=== PATIENT | male | born 2000 ===

== ENCOUNTER 2018-01-22 10:48 | Emergency (ER) | payer OTHER ==
[2018-01-22 12:00] VITALS: BP 126/76
--- NOTE | 2018-01-22 12:37 | UC ---
Throat Pain/Nasal Magdaleno HPI - HPI Summary HPI Summary: 17 y/o male presents to the urgent care c/o sore throat, nasal congestion, sinus pain, LEOS, low grade fever, body aches, chills since 01/20/2018. Pt reports Tuesday he had chills. Today he developed 1 episode of watery diarrhea this morning. Pt has taking Excedrin PO and Tylenol PO to alleviate symptoms. Pain w/ swallowing is 2/10 associates w/ a sore neck. Pt is UTD w/ all vaccines for his age. - History of Current Complaint Chief Complaint: UCRespiratory Stated Complaint: SORE THROAT,CONGESTED Time Seen by Provider: 01/22/18 12:11 Hx Obtained From: Patient Onset/Duration: Gradual Onset, Lasting Days - 4 days, Still Present, Worse Since - yesterday Severity: Mild Pain Intensity: 2 Pain Scale Used: 0-10 Numeric Cough: None Associated Signs & Symptoms: Positive: Dysphagia, Sinus Discomfort, Nasal Discharge, Fever, Other - diarrhea 1 episode today. Negative: Rash Related History: Seasonal Allergies - Epiglottits Risk Factors Epiglottis Risk Factors: Negative - Allergies/Home Medications Allergies/Adverse Reactions: Allergies Allergy/AdvReac Type Severity Reaction Status Date / Time No Known Allergies Allergy Verified 01/22/18 12:00 Home Medications: Home Medications Aspirin/Acetaminophen/Caffeine [Excedrin Extra Strength Caplet] 1 each PO Q6HR 01/22/18 [History Confirmed 01/22/18] PMH/Surg Hx/FS Hx/Imm Hx Previously Healthy: Yes Respiratory History: Asthma Other Respiratory History: Seasonal allergies - Surgical History Surgical History: Yes Surgery Procedure, Year, and Place: thumb bone repair - Family History Known Family History: Positive: None - Pt denies FMHX - Social History Occupation: Student Lives: With Family Alcohol Use: Weekly Substance Use Type: Marijuana Substance Use Comment - Amount & Last Used: 2 times a week Smoking Status (MU): Never Smoked Tobacco - Immunization History Vaccination Up to Date: Yes Review of Systems Constitutional: Fever - low grade subjective fever at home, Chills, Fatigue, Other - body aches Skin: Negative Eyes: Negative ENT: Sore Throat, Nasal Discharge, Sinus Congestion Respiratory: Negative Cardiovascular: Negative Gastrointestinal: Negative Genitourinary: Negative Motor: Negative Neurovascular: Negative Musculoskeletal: Negative Neurological: Headache Psychological: Negative Is Patient Immunocompromised?: No All Other Systems Reviewed And Are Negative: Yes Physical Exam - Summary Physical Exam Summary: Vital Signs Reviewed: Yes General: well developed, well nourished male adolescent sitting in the examining table w/o any apparent distress Eyes: Positive: Conjunctiva Clear - PERRLA, EOMI, fundi grossly normal ENT: Positive: Normal ENT inspection, Hearing grossly normal, Pharynx mild erythema, no exudate, Nasal congestion - edematous and erythematous nasal mucosa , Nasal drainage - yellowish drainage, TMs normal. Negative: Tonsillar swelling , Tonsillar exudate Neck: Positive: Supple, Nontender, No Lymphadenopathy Respiratory: no orthopnea or dyspnea. Able to speak in full sentences, no retractions or accessory muscle use, no tripod position, stridor, or head bobbing. CTA bilaterally, no wheezing, no rhonchi, no rales, no crackles. Cardiovascular: Positive: RRR, No Murmur, Pulses Normal, Brisk Capillary Refill Abdomen Description: Positive: Nontender, No Organomegaly, Soft. Negative: CVA Tenderness (R), CVA Tenderness (L) Bowel Sounds: Positive: Present Musculoskeletal Exam: Normal Musculoskeletal: Positive: Strength Intact, ROM Intact, No Edema Neurological Exam: Normal Psychological Exam: Normal Skin Exam: Normal Triage Information Reviewed: Yes Vital Signs: Initial Vital Signs Temp 98.5 F 01/22/18 11:56 Pulse 70 01/22/18 11:56 Resp 18 01/22/18 11:56 BP 126/76 01/22/18 11:56 Pulse Ox 99 01/22/18 11:56 Throat Pain/Nasal Course/Dx - Course Course Of Treatment: 17 y/o male presents to the urgent care c/o sore throat, nasal congestion, sinus pain, LEOS, low grade fever, body aches, chills since 01/20/2018. Pt reports Tuesday he had chills. Today he developed 1 episode of watery diarrhea this morning. Pt has taking Excedrin PO and Tylenol PO to alleviate symptoms. Pain w/ swallowing is 2/10 associates w/ a sore neck. Pt is UTD w/ all vaccines for his age. Hx obtained. Pt w/ URI on examination. Rapid strep ordered, result: negative.Influenza A&B ordered: result :negative.Pt Rx ibuprofen PO to alleviates symptoms. Advised on hand washing and wear a mask to avoid spreading. Pt advised to rest, increase fluid intake, eat well and avoid strenuous exercise. If symptoms do not improve or worsen advised to return to the urgent care or f/u with her PCP for further evaluation and treatment. D/C instructions explained. Pt understood and agreed with plan of care. - Differential Dx/Diagnosis Differential Diagnosis/HQI/PQRI: Influenza, Laryngitis, Mononucleosis, Pharyngitis, Sinusitis, Tonsillitis, URI Provider Diagnoses: 1- Upper respiratory infection Discharge - Sign-Out/Discharge Documenting (check all that apply): Discharge/Admit/Transfer - D/C home - Discharge Plan Condition: Stable Disposition: HOME Prescriptions: Ibuprofen TAB* [Motrin TAB* 800 MG] 800 mg PO Q6H PRN #20 tab PRN Reason: Pain Patient Education Materials: Upper Respiratory Infection (ED) Forms: *School Release Referrals: [facility] [Outside] - 3 Days () Additional Instructions: 1-Please take ibuprofen PO q6-8hrs prn as instructed after meals to alleviate pain and swelling. Increase fluid intake, eat well, rest and avoid strenuous exercise 2- Continue w/ Zyrtec Po and flonase nasal spray to clear your sinus. Also use saline drops as directed to clear yur sinuses 3-If symptoms do not improve or worsen please return to the urgent care or f/u with your PCP for further evaluation and treatment. - Billing Disposition and Condition Condition: STABLE Disposition: HOME
== END 2018-01-22 12:58 | disposition home or self-care (01) ==
LOC: UCEAST 10:48
DX: J06.9 Acute upper respiratory infection, unspecified (principal); J45.909 Unspecified asthma, uncomplicated
CPT/HCPCS: 87502; 87651; 99202; G0463